=== PATIENT | female | born 1985 | race Caucasian/White ===

== ENCOUNTER 2018-04-17 09:50 | Inpatient (IN) | payer OTHER ==
[2018-04-17] MEDS ORDERED: Labetalol HCl 100 MG/20 ML VIAL ONE (11:08)
[2018-04-17] MEDS: Lactated Ringer's 1,000 ML IV SCH ×2 (11:10→20:09)
[2018-04-17] MEDS ORDERED: Magnesium Sulfate 20 GM/WATER 500 ML BAG IVPB SCH (11:15)
[2018-04-17] MEDS ORDERED: Calcium Gluc 4.6 MEQ/10 ML (100 MG/ML) SLOW IVP PRN (11:15)
[2018-04-17] MEDS ORDERED: Zolpidem Tartrate 5 MG TAB PO PRN (11:15)
[2018-04-17] MEDS: Labetalol HCl 100 MG/20 ML VIAL SLOW IVP PRN ×2 (11:30→15:39)
[2018-04-17] MEDS ORDERED: Penicillin G Potassium 5 MILL.UNITS in Sodium Chloride 0.9% 100 ML IVPB SCH (11:30)
[2018-04-17] MEDS ORDERED: NIFEdipine XL 30 MG TAB PO SCH (11:30)
[2018-04-17 11:34] LABS: Hemoglobin 10.4 g/dL (12.0-16.0); Mean Corpuscular HGB CONC 32.9 g/dL (32.0-36.0); Mean Corpuscular Hemoglobin 22.9 pg (27.0-31.0); Mean Corpuscular Volume 69.8 fL (78.0-98.0); Mean Platelet Volume 11.7 fL (7.4-10.4); Platelet Count 152 thou/uL (130-400); RBC Distribution Width 14.2 % (11.5-14.5); Red Blood Cell (RBC) Count 4.52 mill/uL (4.20-5.40); White Blood Cell (WBC) Count 8.9 thou/uL (4.8-10.8)
[2018-04-17 11:41] LABS: Amphetamine Not Detected (NotDetected); Barbiturates Screen Not Detected (NotDetected); Benzodiazepine Screen Not Detected (NotDetected); Cocaine Metabolite Screen Not Detected (NotDetected); Medtox Control Line Valid? VALID (VALID); Medtox Reader # READER 1; Methadone Not Detected (NotDetected); Methamphetamine Not Detected (NotDetected); Opiate Screen Not Detected (NotDetected); Oxycodone Screen Not Detected (NotDetected); Phencyclidine (PCP) Not Detected (NotDetected); THC/Cannabinoid Screen Not Detected (NotDetected); Tricyclic Screen Not Detected (NotDetected)
[2018-04-17 11:52] LABS: ALT (SGPT) 9 U/L (8-55); AST (SGOT) 14 U/L (5-34); Albumin 3.3 g/dL (3.5-5.0); Alkaline Phosphatase 81 U/L (40-150); Anion Gap 15 mmol/L (10-20); BUN (Urea Nitrogen) 10 mg/dL (7.0-18.7); Bilirubin, Total 0.2 mg/dL (0.2-1.2); Calc. Creatinine Clearance 0 mL/min (70-130); Calcium 8.7 mg/dL (7.8-10.44); Carbon Dioxide 16 mmol/L (22-29); Chloride 109 mmol/L (98-107); Estimated GFR-MDRD Greater than 90; Globulin 2.8 g/dL (2.4-3.5); Glucose 71 mg/dL (70-105); Potassium 4.4 mmol/L (3.5-5.1); Protein, Total 6.1 g/dL (6.0-8.3); Sodium 136 mmol/L (136-145)
[2018-04-17] MEDS: Magnesium Sulfate 20 gm/500 ml 20 GM/500 ML BAG IVPB SCH ×2 (12:00→20:09)
[2018-04-17 12:09] LABS: Syphilis Antibody Nonreactive (Nonreactive); Syphilis Antibody Index 0.03 S/CO (<1.00 Non-Reactive)
[2018-04-17 12:10] LABS: HBSAg Index 0.22 S/CO (0-0.99); HIV (1/2) Antibody/Antigen Non-Reactive (NonReactive); HIV 1/2 INDEX 0.07 S/CO (<1.00); Hep B Surf Ag Non-Reactive S/CO (NonReactive)
[2018-04-17] MEDS: Betamet Acet/Betamet Na Ph 30 MG/5 ML VIAL IM SCH (12:37)
--- NOTE | 2018-04-17 13:27 | ULT ---
OB ULTRASOUND: Date: 04-17-18 History: Preclampsia. Comparison: None available. FINDINGS: There is a single intrauterine gestation in cephalic presentation. Cardiac doppler demonstrates heart tones with a heart rate of 157 beats/minute. The placenta is located anteriorly without evidence of placenta previa. Amniotic fluid index was calculated at 10.5 cm which is within normal li mits. The lower uterine segment is obscured due to shadowing and not well evaluated on this exam. measurements: BPD 7.71 cm 31 weeks HC 27.92 cm 31 weeks 4 days AC 27.4 cm 31 weeks 3 days FL 5.65 cm 29 weeks 4 days Estimated gestational age by ultrasound is 30 weeks 3 days with an RHYS 06-23-18. Gestational age by t he last menstrual period is 31 weeks. The estimated weight by ultrasound is 1636 grams (3 lbs. 10 oz). This represents 30th percentil e for weight. anatomical structures were not evaluated on this exam. IMPRESSION: 1. Single intrauterine gestation in cephalic presentation with heart tones documented. 2. Estimated gestational age by ultrasound is 30 weeks 3 days and an RHYS on 06-23-18. 3. Estimated weight is 1636 grams (3 lbs. 10 oz). 4. Amniotic fluid index of 10.5 cm. 5. Obscuration of the cervix. POS: [facility]
[2018-04-17 15:10] VITALS: BMI 40.4
--- NOTE | 2018-04-17 15:36 | HP ---
DATE OF ENCOUNTER: 04/17/2018 PRIMARY OB: Dr. Narayan Navarrete. CHIEF COMPLAINT: Elevated blood pressures. HISTORY OF PRESENT ILLNESS: The patient is a 32-year-old female, who has recently changed obstetric care to Dr. Narayan Navarrete in the last week or two and is presenting to Labor and Delivery with elevate d blood pressures. She reports to the last several weeks, her blood pressures have been elevating in to the mild to severe range and was recently placed on labetalol 100 mg twice daily, which she has be en on for about a week. The patient reports that today her blood pressures were in the 160s in clini c and was sent to the hospital for evaluation. The patient reports that she does have intermittent h eadaches. She denies any shortness of breath or fever. She denies upper quadrant pain. In our disc ussion, the patient has likely history of chronic hypertension, which had been treated medically unti l the patient had successfully lost enough weight to come off medications 2-3 years ago. The patient reports since then she has not buying on any medications and has not been told that her blood pressu res have been a problem. Patient by report states that her pressures have been slightly elevated wit h this early on in the 140s. The timing of that is unclear at what trimester she began hav ing signs of elevated blood pressure. The patient denies fever, fall, chest pain, shortness of breat h, nausea, vomiting, diarrhea, constipation. She denies any new rashes. She denies vaginal bleeding . She reports a normal vaginal discharge with this . She denies hip problems or knee probl ems. She does report back pain associated with the . She denies urinary urgency or frequen cy. The patient also reports that she has gestational diabetes and has been treated conservatively o ff medications with diet control only. PAST MEDICAL HISTORY: History of chronic hypertension, currently off medications. PAST SURGICAL HISTORY: Negative. SOCIAL HISTORY: Denies drug, alcohol or tobacco use. ALLERGIES: No known drug allergies. MEDICATIONS: Labetalol 100 mg p.o. b.i.d., vitamins, OBSTETRIC HISTORY: This is her first . OBSTETRICAL LABORATORY DATA: Unavailable. REVIEW OF SYSTEMS: Per HPI. PHYSICAL EXAMINATION: VITAL SIGNS: Blood pressure on initial presentation was 166/98. Her peak blood pressure was 184/106 , heart rate 73, respiratory 18, and temperature 98.4. GENERAL: The patient appears to be in no acute distress. She is alert and oriented, cooperative, an d pleasant to interact with. HEENT: Normocephalic, atraumatic. LUNGS: Clear to auscultation bilaterally. HEART: Regular rate and rhythm. ABDOMEN: Soft. She has no right upper quadrant tenderness to palpation. Abdomen is gravid. EXTREMITIES: Nontender, nonedematous. DTRs are 1+. GENITOURINARY: Has been deferred. heart tracing performed for elevated blood pressures. Baseline is noted to be in the 120s with moderate long-term variability, positive 15 x 15 accelerations and no decelerations. Tocometer show s some irritability, but no consistent contractions. LABORATORY DATA: White count is 8.9, hemoglobin is 10.4, hematocrit 31.5, platelets 152,000. Sodium 136, potassium 4.4, chloride is 109, bicarbonate 16, BUN is 10, creatinine 0.72, glucose of 71, AST of 14, ALT of 9. Urine is negative for protein. Urine drug screen is negative. RPR is nonreactive, blood type is O positive with a negative antibody screen. A ultrasound was performed. Fetus is in vertex presentation. Placenta is anterior and estimat ed gestational age by ultrasound is 30 weeks and 3 days, who presented at 30th percentile for growth. ASSESSMENT AND PLAN: The patient is a 32-year-old female recently transferring OB care to Dr. Narayan Navarrete, who is presenting today with elevated blood pressures. By history, the patient does have chr onic hypertension, but has been managed by diet and exercise. Her lab work is completely negative in cluding her urine protein. Her blood pressures were easily brought under control with one dose of IV labetalol 20 mg with current blood pressures have been in the 150s for the last 3 hours. Fetus is r eassuring with a category 1 tracing. The patient likely is experiencing exacerbation of her chronic hypertension and not preeclampsia as the patient has no evidence of that at this time. Patient has b een started on Procardia 30 mg daily. She also has been started on magnesium for seizure prophylaxis at the onset of admission given the severity of her blood pressures. She has also been put on betam ethasone for lung maturity and placed on penicillin for GBS prophylaxis. Given the ease of cor rection of her blood pressures will likely discontinue her antibiotics shortly and consider discontin uing her magnesium later this afternoon with a transfer to the floor for blood pressure monitoring. Dr. Narayan Navarrete has been updated on the patient's status, he will be taking over management of care.
[2018-04-17 17:21] LABS: Amnisure Test No Membranes Rupture (No Rupture)
[2018-04-17 17:22] LABS: Amnisure Internal Control QC ACCEPTABLE (ACCEPTABLE)
[2018-04-17] MEDS: Acetaminophen 500 MG TAB PO PRN (20:08)
[2018-04-17] MEDS ORDERED: Insulin Regular 300 UNITS/3 ML VIAL SC PRN (22:24)
[2018-04-17] MEDS ORDERED: Dextrose 5% in Water 1,000 ML IV PRN (22:24)
[2018-04-17] MEDS ORDERED: Dextrose 50% Abboject 50 ML SYRINGE SLOW IVP PRN (22:24)
[2018-04-18] MEDS: Magnesium Sulfate 20 gm/500 ml 20 GM/500 ML BAG IVPB SCH (06:14)
[2018-04-18] MEDS: Acetaminophen 500 MG TAB PO PRN ×2 (08:35→15:20)
[2018-04-18] MEDS ORDERED: NIFEdipine XL 30 MG TAB PO SCH (09:00)
[2018-04-18 12:26] LABS: Collection Duration 24 hrs; Urine Total Volume 7400 mL (600-1600)
[2018-04-18] MEDS: Betamet Acet/Betamet Na Ph 30 MG/5 ML VIAL IM SCH (13:01)
[2018-04-18 15:44] LABS: Protein, Urine Less than 10 mg/dL (1-14)
--- NOTE | 2018-04-18 16:08 | PDOC.LDPN ---
Labor & Delivery Progress Note - Subjective Subjective: comfortable, no concerns - Objective General: NAD Uterine fundus: non tender FHT: category 1 - Assessment (1) Preeclampsia Code(s): O14.90 - UNSPECIFIED PRE-ECLAMPSIA, UNSPECIFIED TRIMESTER Current Visit: Yes Status: Acute -: Patient presents from clinic yesterday at approximately 31-32 weeks gestation ( official records not received yet) with severe range blood pressures, and 1+ protein. She complains of intermittent headaches, and her picture is very concerning for preeclamsia. When she presented to L&D, her pressures were even higher than clinic, and the patient underwent 24 hours of Magnesium Sulfate, BMZ course started, and a 24 hour urine protein was collected. Today, the patient feels better, blood pressures have improved on Procardia XL 30mg q day, and Metformin 500mg po BID ordered. NST q shift ordered. Repeat PIH labs ordered for the morning. 48 steroid window is being completed and will be up mid day tomorrow. A second 24 hour urine for protein is being collected, after the last collection was dilute with 7800 mL of volume, and too dilute for the lab to read confidently. We will reevaluate the patient tomorrow, and decide in continued in-patient care is warranted.
[2018-04-18] MEDS: Pen G 2.5 MILL.UNITS/50 ML BAG IVPB SCH (17:33)
[2018-04-18] MEDS: Lactated Ringer's 1,000 ML IV SCH (17:34)
[2018-04-18] MEDS: metFORMIN 500 MG TAB PO SCH (18:03)
[2018-04-18] MEDS ORDERED: Labetalol HCl 100 MG/20 ML VIAL SLOW IVP SCH (18:45)
[2018-04-18] MEDS: NIFEdipine XL 30 MG TAB PO SCH (21:23)
--- NOTE | 2018-04-19 01:01 | PDOC.LDPN ---
Labor & Delivery Progress Note - Subjective Subjective: comfortable, no concerns - Objective Vital signs reviewed and normal: yes General: NAD, resting - Assessment (1) Preeclampsia Code(s): O14.90 - UNSPECIFIED PRE-ECLAMPSIA, UNSPECIFIED TRIMESTER Current Visit: Yes Status: Acute -: Patient presents from clinic 04/17/18 at approximately 31-32 weeks gestation ( official records not received yet) with severe range blood pressures, and 1+ protein. She complained of intermittent headaches, and her picture was concerning for preeclamsia. Clinc SBP's were in the 160s on repeat readings. When she presented to L&D, her pressures were even higher than clinic, and the patient underwent 24 hours of Magnesium Sulfate, BMZ course was started, and a 24 hour urine protein was collected. Over the course of her admission , the patient states she feels better, blood pressures have improved on Procardia XL 30mg q 12h, and Metformin 500mg po BID started. HBA1C at 5.8 in (so GDM rather than Tyoe 2 seems likely.....although patient has a history of Metformin use several years back when her BMI was higher). Plan: 1. NST q shift 2. A second 24 hour urine for protein is being collected 3. PIH Labs ordered later this morning 4. Metformin 500mg po BID 5. Procardia 30XL q 12 hours
[2018-04-19 06:12] LABS: ALT (SGPT) 8 U/L (8-55); AST (SGOT) 11 U/L (5-34); Albumin 3.2 g/dL (3.5-5.0); Alkaline Phosphatase 76 U/L (40-150); Anion Gap 13 mmol/L (10-20); BUN (Urea Nitrogen) 14 mg/dL (7.0-18.7); Bilirubin, Total 0.2 mg/dL (0.2-1.2); Calc. Creatinine Clearance 165 mL/min (70-130); Calcium 8.2 mg/dL (7.8-10.44); Carbon Dioxide 21 mmol/L (22-29); Chloride 106 mmol/L (98-107); Estimated GFR-MDRD 86; Globulin 2.9 g/dL (2.4-3.5); Glucose 105 mg/dL (70-105); Potassium 4.1 mmol/L (3.5-5.1); Protein, Total 6.1 g/dL (6.0-8.3); Sodium 136 mmol/L (136-145); Uric Acid 6.5 mg/dL (2.6-6.0)
[2018-04-19 06:16] LABS: #Eosinphils 0.1 thou/uL (0.0-0.7); #Monocytes 0.6 thou/uL (0.11-0.59); #Neutrophils 9.1 thou/uL (1.40-6.50); %Basophils 0.1 % (0.0-1.0); %Lymphocytes 16.9 % (21.0-51.0); %Monocytes 5.1 % (0.0-10.0); %Neutrophils 76.9 % (42.0-75.0); Hemoglobin 9.2 g/dL (12.0-16.0); Mean Corpuscular HGB CONC 32.1 g/dL (32.0-36.0); Mean Corpuscular Hemoglobin 22.4 pg (27.0-31.0); Mean Corpuscular Volume 69.7 fL (78.0-98.0); Platelet Count 155 thou/uL (130-400); RBC Distribution Width 14.1 % (11.5-14.5); Red Blood Cell (RBC) Count 4.12 mill/uL (4.20-5.40); White Blood Cell (WBC) Count 11.8 thou/uL (4.8-10.8)
[2018-04-19] MEDS: metFORMIN 500 MG TAB PO SCH ×2 (08:17→17:01)
[2018-04-19] MEDS: NIFEdipine XL 30 MG TAB PO SCH ×2 (08:17→21:15)
[2018-04-19 16:27] LABS: Collection Duration 24 hrs; Urine Total Volume 1300 mL (600-1600)
[2018-04-19 16:47] LABS: Protein - 24 Hr 260 mg/24 hr (Less than 300); Protein, Urine 20 mg/dL (1-14)
[2018-04-20] MEDS: Acetaminophen 500 MG TAB PO PRN (08:20)
[2018-04-20] MEDS: metFORMIN 500 MG TAB PO SCH ×2 (08:20→17:24)
[2018-04-20] MEDS: NIFEdipine XL 30 MG TAB PO SCH ×2 (08:20→20:28)
--- NOTE | 2018-04-20 16:11 | PDOC.LDPN ---
Labor & Delivery Progress Note - Subjective Subjective: comfortable, other (The patient notes a 3/10 headache which seems persistent. ) - Objective Vital signs reviewed and normal: yes General: resting Uterine fundus: non tender - Assessment (1) Preeclampsia Code(s): O14.90 - UNSPECIFIED PRE-ECLAMPSIA, UNSPECIFIED TRIMESTER Current Visit: Yes Status: Acute Comment: 1. IUP at 31 3/7 weeks given 06/19/18 EDC (per previous practice in [place]) 2. History of CHTN and borderline DM 3. Morbid Obesity (BMI 40) 4. Acute worsening BPs worrisome for early preeclamsia development (SPB as high as 180s at presentaion) 5. Persistent 3/10 headache reported for 1-2 weeks 6. BMZ x2 given 7. Magnesium Sulfate x 24 hours given Plan 1. Patient now on Procardia XL 60mg total/24 hrs 2. Aldomet 250mg BID 3. Bloodpressures improved, but still SBPs 150s-160s persist 4. Persistant mild-moderate headache reported 5. Metformin 500mg BID started for GDM 6. Ultrasound with BPP ordered and pending 7. Repeat 24 hour urine ordered 8. PIH Labs re-ordered for morning
--- NOTE | 2018-04-20 19:50 | ULT ---
OB ULTRASOUND WITH BIOPHYSICAL PROFILE: 04/20/2018 HISTORY: Hypertension. Follow up for growth and evaluation of DESHAWN. COMPARISON: 04/17/2018 FINDINGS: Again noted is a single intrauterine gestation in a cephalic presentation. Cardiac Doppler demonstra louise heart tones with a heart rate of 133 beats per minute. The placenta is again located anteriorly without evidence of placenta previa. The amniotic fluid index measures 13.9 cm on the cu rrent study, with a previous calculation of 10.5 cm. The cervix is mostly obscured due to shadowing from the head. MEASUREMENTS: BIPARIETAL DIAMETER: 7.68 cm (30 weeks 6 days) HEAD CIRCUMFERENCE: 29.28 cm (32 weeks 2 days) ABDOMINAL CIRCUMFERENCE: 28.08 cm (32 weeks 1 day) FEMUR LENGTH: 6.28 cm (32 weeks 4 days) ESTIMATED GESTATIONAL AGE BY ULTRASOUND: 31 weeks 6 days RHYS: 06/16/2018 GESTATIONAL AGE BY LAST MENSTRUAL PERIOD: 31 weeks 3 days ESTIMATED WEIGHT BY ULTRASOUND: 1911 g (4 lbs 3 oz). This represents the 63rd percentile for weight. There has been interval growth when compared to the prior exam. This examination was not performed for evaluation of the anatomical structures, but the provide d images demonstrate no definite anomalies. BIOPHYSICAL PROFILE: A score of 2 was obtained, each, for movement, breathing, ton e, and amniotic fluid volume. IMPRESSION: 1. Single intrauterine gestation, in cephalic presentation, with heart tones documented. 2. Estimated gestational age, by ultrasound, is 31 weeks 6 days, with an estimated date of delivery of 06/16/2018. 3. Estimated weight 1911 g (4 lbs 3 oz). 4. Amniotic fluid index measuring 13.9 cm. 5. A total biophysical profile score of 8/8 is obtained. POS: [facility]
[2018-04-21 06:12] LABS: #Eosinphils 0.1 thou/uL (0.0-0.7); #Lymphocytes 2.4 thou/uL (1.20-3.40); #Monocytes 0.8 thou/uL (0.11-0.59); #Neutrophils 5.8 thou/uL (1.40-6.50); %Basophils 0.1 % (0.0-1.0); %Eosinophils 1.3 % (0.0-10.0); %Monocytes 8.5 % (0.0-10.0); %Neutrophils 64.1 % (42.0-75.0); Hemoglobin 9.8 g/dL (12.0-16.0); Mean Corpuscular HGB CONC 32.1 g/dL (32.0-36.0); Mean Corpuscular Hemoglobin 22.4 pg (27.0-31.0); Mean Corpuscular Volume 69.8 fL (78.0-98.0); Mean Platelet Volume 10.6 fL (7.4-10.4); Platelet Count 147 thou/uL (130-400); RBC Distribution Width 14.1 % (11.5-14.5); Red Blood Cell (RBC) Count 4.38 mill/uL (4.20-5.40); White Blood Cell (WBC) Count 9.1 thou/uL (4.8-10.8)
[2018-04-21 06:25] LABS: ALT (SGPT) 12 U/L (8-55); AST (SGOT) 15 U/L (5-34); Alkaline Phosphatase 80 U/L (40-150); Anion Gap 12 mmol/L (10-20); BUN (Urea Nitrogen) 15 mg/dL (7.0-18.7); Bilirubin, Total Less than 0.2 mg/dL (0.2-1.2); Calc. Creatinine Clearance 170 mL/min (70-130); Calcium 9.1 mg/dL (7.8-10.44); Carbon Dioxide 21 mmol/L (22-29); Chloride 107 mmol/L (98-107); Estimated GFR-MDRD 89; Globulin 2.7 g/dL (2.4-3.5); Glucose 89 mg/dL (70-105); Potassium 3.9 mmol/L (3.5-5.1); Protein, Total 5.7 g/dL (6.0-8.3); Sodium 136 mmol/L (136-145); Uric Acid 6.6 mg/dL (2.6-6.0)
[2018-04-21] MEDS: metFORMIN 500 MG TAB PO SCH ×2 (08:13→17:09)
[2018-04-21] MEDS: NIFEdipine XL 30 MG TAB PO SCH ×2 (08:14→20:52)
[2018-04-21] MEDS: Acetaminophen 500 MG TAB PO PRN (13:26)
[2018-04-21 17:28] LABS: Collection Duration 24 hrs; Urine Total Volume 1925 mL (600-1600)
[2018-04-21 18:17] LABS: Protein - 24 Hr 828 mg/24 hr (Less than 300); Protein, Urine 43 mg/dL (1-14)
--- NOTE | 2018-04-21 19:17 | PDOC.LDPN ---
Labor & Delivery Progress Note - Assessment (1) Preeclampsia Code(s): O14.90 - UNSPECIFIED PRE-ECLAMPSIA, UNSPECIFIED TRIMESTER Current Visit: Yes Status: Acute Comment: 1. IUP at 31 4/7 weeks given 06/19/18 EDC (per previous practice in [place]) 2. Severe Preeclampsia (newest 24 hour urine protein >800mg). 3. History of mild CHTN and borderline DM (HbA1C 5.8 in ). 4. Morbid Obesity (BMI 40) 5 Persistent 3/10 headache reported for 1-2 weeks, now 4/10 reported today 6. BMZ x2 given (04/17/18 - 04/18/18) 7. Magnesium Sulfate x 24 hours given (Acute Blood Pressure Control/Seizure prophylaxsys) Plan 1. Will transfer Patient back to L&D with new Sevre Preeclamsia diagnosis for closer monitoring. 2. Patient now on Procardia XL 30mg BID and Aldomet 500mg BID - but SBP is persistantly 160s today with little improvement depite titrating BP medications upwards mutiple times. 2. PIH Labs re-ordered for morning 3. According to ACOG guidlines, our goal would be to achieve 34 complted weeks prior to delivery if possible. However, the patients hospital course will dictate timing of delivery. Worsening markers of preeclampsia may require immidiate delivery. 4. Given early, nulliparous cervix, Section for delivery is likely.
[2018-04-22] MEDS: Acetaminophen 500 MG TAB PO PRN ×2 (02:42→09:02)
[2018-04-22] MEDS ORDERED: Butorphanol Tartrate 1 MG/ML VIAL ONE (06:05)
[2018-04-22] MEDS ORDERED: Butorphanol Tartrate 1 MG/ML VIAL SLOW IVP PRN (06:07)
[2018-04-22 06:12] LABS: #Basophils 0.1 thou/uL (0.0-0.2); #Eosinphils 0.2 thou/uL (0.0-0.7); #Lymphocytes 2.5 thou/uL (1.20-3.40); #Monocytes 0.6 thou/uL (0.11-0.59); #Neutrophils 5.3 thou/uL (1.40-6.50); %Eosinophils 1.9 % (0.0-10.0); %Lymphocytes 28.8 % (21.0-51.0); %Monocytes 7.4 % (0.0-10.0); Hemoglobin 10.2 g/dL (12.0-16.0); Mean Corpuscular HGB CONC 32.3 g/dL (32.0-36.0); Mean Corpuscular Hemoglobin 22.4 pg (27.0-31.0); Mean Corpuscular Volume 69.4 fL (78.0-98.0); Mean Platelet Volume 10.5 fL (7.4-10.4); Platelet Count 124 thou/uL (130-400); RBC Distribution Width 14.3 % (11.5-14.5); Red Blood Cell (RBC) Count 4.57 mill/uL (4.20-5.40); White Blood Cell (WBC) Count 8.7 thou/uL (4.8-10.8)
[2018-04-22 06:26] LABS: ALT (SGPT) 12 U/L (8-55); AST (SGOT) 15 U/L (5-34); Alkaline Phosphatase 77 U/L (40-150); Anion Gap 11 mmol/L (10-20); BUN (Urea Nitrogen) 12 mg/dL (7.0-18.7); Bilirubin, Total 0.2 mg/dL (0.2-1.2); Calc. Creatinine Clearance 159 mL/min (70-130); Calcium 8.2 mg/dL (7.8-10.44); Carbon Dioxide 21 mmol/L (22-29); Chloride 108 mmol/L (98-107); Estimated GFR-MDRD 82; Globulin 2.8 g/dL (2.4-3.5); Glucose 74 mg/dL (70-105); Protein, Total 5.8 g/dL (6.0-8.3); Sodium 136 mmol/L (136-145); Uric Acid 7.1 mg/dL (2.6-6.0)
[2018-04-22] MEDS: Labetalol HCl 100 MG/20 ML VIAL SLOW IVP PRN (08:45)
[2018-04-22] MEDS: NIFEdipine XL 30 MG TAB PO SCH (08:56)
[2018-04-22] MEDS: metFORMIN 500 MG TAB PO SCH ×2 (08:56→16:04)
[2018-04-22] MEDS: Magnesium Sulfate 20 gm/500 ml 20 GM/500 ML BAG IVPB SCH ×2 (09:36→18:27)
[2018-04-22] MEDS ORDERED: Lactated Ringer's 500 ML IV PRN (11:03)
[2018-04-22] MEDS ORDERED: Ketorolac Tromethamine 30 MG/ML VIAL ONE ×2 (11:08→13:10)
[2018-04-22] MEDS ORDERED: Ondansetron HCl/PF 4 MG/2 ML Vial ONE ×2 (11:08→13:10)
[2018-04-22] MEDS ORDERED: Dexamethasone 20 MG/5 ML VIAL ONE (11:08)
[2018-04-22] MEDS ORDERED: Lactated Ringer's 1,000 ML IV SCH (11:15)
[2018-04-22] MEDS ORDERED: Bicitra 30 ML UDCUP ONE (12:04)
[2018-04-22] MEDS ORDERED: CEFAZOLIN/Water 2 GM/20 ML SYRINGE ONE (12:04)
--- NOTE | 2018-04-22 12:36 | PDOC.LDPN ---
Labor & Delivery Progress Note - Assessment (1) Preeclampsia Code(s): O14.90 - UNSPECIFIED PRE-ECLAMPSIA, UNSPECIFIED TRIMESTER Current Visit: Yes Status: Acute Comment: 1. IUP at 31 5/7 weeks given 06/19/18 EDC (per previous practice in [place]) 2. Severe Preeclampsia (newest 24 hour urine protein >800mg). 3. History of mild CHTN and borderline DM (HbA1C 5.8 in ). 4. Morbid Obesity (BMI 40) 5 Persistent 3/10 headache reported for 1-2 weeks, but acutely worse today at 6/ 10 or more. 6. BMZ x2 given (04/17/18 - 04/18/18) 7. Magnesium Sulfate x 24 hours given (Acute Blood Pressure Control/Seizure prophylaxsys), now restated at 4g load/2g per hour. Plan 1. Despite intense efforts to control rising blood pressures and worsening headaches, the patient's overal severe preeclampsia condition is deteriorating, Uric Acid and LDH are trending upwards, BPs are trending upwards despite mutiple efforts to to increase anti-hypertensive medication to stabalize the patient. We will thus prceede with immidiate delivery, as she is a poor induction candiate being a G1, only having a 31 weeks cervix, morbidly obese, and medically difficult to stabalize.
[2018-04-22] MEDS ORDERED: CEFAZOLIN/Water 2 GM/20 ML SYRINGE SLOW IVP SCH (12:45)
[2018-04-22] MEDS ORDERED: Morphine PF 1 MG/ML SYR ONE (12:49)
[2018-04-22] MEDS ORDERED: Lidocaine 1% PF 5 ML VIAL ONE (12:50)
[2018-04-22] MEDS ORDERED: Bupivacaine 0.75% W/DEXTROSE 8.25% 2 ML AMP ONE (12:50)
[2018-04-22] MEDS ORDERED: Dexamethasone 4 mg/ml Vial ONE (13:10)
[2018-04-22] MEDS ORDERED: Oxytocin 10 UNITS/ML VIAL ONE ×3 (13:10→13:34)
[2018-04-22] MEDS ORDERED: Naloxone HCl 0.4 mg/ml Vial IVP PRN ×2 (13:24)
[2018-04-22] MEDS ORDERED: Eucerin (Mineral Oil/Petrolatum,White) 30 gm Jar TOP PRN (13:24)
[2018-04-22] MEDS ORDERED: HYDROmorphone 2 MG/ML VIAL SLOW IVP PRN (13:24)
[2018-04-22] MEDS ORDERED: diphenhydrAMINE 50 MG/ML VIAL IVP PRN (13:24)
[2018-04-22] MEDS ORDERED: Ketorolac Tromethamine 30 MG/ML VIAL IVP PRN (13:24)
[2018-04-22] MEDS ORDERED: Ondansetron HCl/PF 4 MG/2 ML Vial IVP PRN ×3 (13:24→17:25)
[2018-04-22] MEDS ORDERED: Meperidine HCl/PF 25 MG/ML VIAL SLOW IVP PRN (13:24)
[2018-04-22] MEDS ORDERED: Naloxone HCl 0.4 mg/ml Vial IV PRN (13:24)
[2018-04-22] MEDS ORDERED: Communication Order-Pharmacy FS SCH (13:30)
[2018-04-22] MEDS ORDERED: Ketorolac Tromethamine 30 MG/ML VIAL IVP SCH (13:30)
[2018-04-22] MEDS ORDERED: Measles/Mumps/Rubella 10 MCG/0.5 ML VIAL SC ONE (17:25)
[2018-04-22] MEDS ORDERED: Bisacodyl 10 MG SUPP PR PRN (17:25)
[2018-04-22] MEDS ORDERED: Lanolin Ointment 7 GM TUBE TOP PRN (17:25)
[2018-04-22] MEDS ORDERED: Varicella virus, LIVE 0.5 ML VIAL SC ONE (17:25)
[2018-04-22] MEDS ORDERED: Promethazine HCl 25 MG/ML VIAL IM PRN (17:25)
[2018-04-22] MEDS ORDERED: diphenhydrAMINE 25 MG CAP PO PRN (17:25)
[2018-04-22] MEDS ORDERED: Adacel (T-DAP) 0.5 ML VIAL IM ONE (17:25)
[2018-04-22] MEDS: NS / Oxytocin 40 units/1000ml 1,000 ML IV SCH (20:05)
[2018-04-23] MEDS: Docusate Calcium (SURFAK) 240 MG CAP PO SCH ×3 (00:20→21:40)
[2018-04-23] MEDS ORDERED: HYDROcodone/Acetaminophen 5/325 mg Tablet PO PRN ×2 (01:30→09:30)
[2018-04-23] MEDS: Magnesium Sulfate 20 gm/500 ml 20 GM/500 ML BAG IVPB SCH (04:13)
[2018-04-23 06:29] LABS: Hemoglobin 9.2 g/dL (12.0-16.0); Mean Corpuscular HGB CONC 32.6 g/dL (32.0-36.0); Mean Corpuscular Hemoglobin 22.5 pg (27.0-31.0); Mean Corpuscular Volume 69.1 fL (78.0-98.0); Mean Platelet Volume 11.3 fL (7.4-10.4); Platelet Count 121 thou/uL (130-400); RBC Distribution Width 14.3 % (11.5-14.5); White Blood Cell (WBC) Count 14.2 thou/uL (4.8-10.8)
[2018-04-23] MEDS: Labetalol HCl 100 MG/20 ML VIAL SLOW IVP PRN (09:50)
[2018-04-23] MEDS: Prenatal Vitamin 1 TAB PO SCH (10:07)
[2018-04-23] MEDS: Ferrous Sulfate 325 MG TAB PO SCH ×2 (10:17→19:18)
[2018-04-23] MEDS: NS / Oxytocin 40 units/1000ml 1,000 ML IV SCH (10:25)
[2018-04-23] MEDS ORDERED: NIFEdipine XL 30 MG TAB PO SCH (13:45)
[2018-04-23] MEDS: Ibuprofen 800 MG TAB PO SCH ×2 (15:34→21:39)
[2018-04-23] MEDS: metFORMIN 500 MG TAB PO SCH (15:46)
[2018-04-24] MEDS: Ibuprofen 800 MG TAB PO SCH ×3 (06:38→21:24)
[2018-04-24] MEDS: Ferrous Sulfate 325 MG TAB PO SCH ×2 (09:35→17:53)
[2018-04-24] MEDS: Docusate Calcium (SURFAK) 240 MG CAP PO SCH ×2 (09:35→21:24)
[2018-04-24] MEDS: Prenatal Vitamin 1 TAB PO SCH (09:35)
--- NOTE | 2018-04-24 19:49 | PDOC.PP ---
Post Progress Note Post Day #: 1 PO intake tolerated: yes Ambulation: yes Vital Signs (12 hours) Temp Pulse Resp BP 04/24/18 17:21 98.7 F 91 20 146/79 H 04/24/18 16:00 98.7 F 91 20 04/24/18 12:00 98.3 F 89 20 04/24/18 11:50 98.3 F 89 20 141/90 H 04/24/18 08:00 98.4 F 88 20 Weight Weight 221 lb - Physical Examination General: NAD Cardiovascular: no m/r/g Respiratory: clear to auscultation bilaterally Abdominal: no distention, appropriately TTP Extremities: negative homans (B) Skin: CS incision dry & intact, no rash Neurological: no gross focal deficits Psychiatric: A&Ox3, normal affect Result Diagrams: 04/23/18 06:16 04/22/18 06:01 Additional Labs: Post Labs Blood Type O POSITIVE 04/22/18 12:15 Hep Bs Antigen Non-Reactive S/CO (NonReactive) 04/17/18 11:16 (1) Preeclampsia Code(s): O14.90 - UNSPECIFIED PRE-ECLAMPSIA, UNSPECIFIED TRIMESTER Status: Acute Comment: PPD #1, doing very well after emergency CS. Patient is off Magnesium Sulfate, now on Procardia 30XL BID.
--- NOTE | 2018-04-24 19:50 | PDOC.PP ---
Post Progress Note PO intake tolerated: yes Flatus: yes Ambulation: yes Vital Signs (12 hours) Temp Pulse Resp BP 04/24/18 17:21 98.7 F 91 20 146/79 H 04/24/18 16:00 98.7 F 91 20 04/24/18 12:00 98.3 F 89 20 04/24/18 11:50 98.3 F 89 20 141/90 H 04/24/18 08:00 98.4 F 88 20 Weight Weight 221 lb - Physical Examination General: NAD Cardiovascular: no m/r/g, RRR Respiratory: clear to auscultation bilaterally, non-labored breathing Abdominal: + bowel sounds, no distention, appropriately TTP Extremities: negative homans (B) Skin: CS incision dry & intact, no rash Neurological: no gross focal deficits Psychiatric: A&Ox3, normal affect (PT doing well on POD #2. DC tomorrow anticipated to home.) Result Diagrams: 04/23/18 06:16 04/22/18 06:01 Additional Labs: Post Labs Blood Type O POSITIVE 04/22/18 12:15 Hep Bs Antigen Non-Reactive S/CO (NonReactive) 04/17/18 11:16 (1) Preeclampsia Code(s): O14.90 - UNSPECIFIED PRE-ECLAMPSIA, UNSPECIFIED TRIMESTER Status: Acute Comment: PPD #1, doing very well after emergency CS. Patient is off Magnesium Sulfate, now on Procardia 30XL BID.
[2018-04-24] MEDS ORDERED: NIFEdipine XL 30 MG TAB PO SCH (22:15)
[2018-04-25] MEDS: Ibuprofen 800 MG TAB PO SCH ×3 (05:37→21:26)
[2018-04-25] MEDS: Docusate Calcium (SURFAK) 240 MG CAP PO SCH ×2 (08:59→21:26)
[2018-04-25] MEDS: Prenatal Vitamin 1 TAB PO SCH (08:59)
[2018-04-25] MEDS: Ferrous Sulfate 325 MG TAB PO SCH ×2 (08:59→17:47)
[2018-04-25] MEDS ORDERED: NIFEdipine XL 30 MG TAB PO SCH (09:00)
--- NOTE | 2018-04-25 19:06 | OP ---
DATE OF PROCEDURE: 04/22/2018 PREOPERATIVE DIAGNOSIS: Intrauterine at 31 weeks and 5 days with severe preeclampsia. POSTOPERATIVE DIAGNOSIS: Intrauterine at 31 weeks and 5 days with severe preeclampsia. PROCEDURES: 1. Primary low transverse section. 2. Myomectomy. FINDINGS: Viable male weighing 1840 grams or 4 pounds 1 ounce with a nuchal cord around the n yolanda x1. Apgars 4 at 1 minute and 8 at 5 minutes. COMPLICATIONS: None. INDICATIONS FOR PROCEDURE: The patient presented to the [facility] Emergency Room, sent over from clinic after experiencing severe range blood pressures as well as overall feelin g poorly. She was taken to Labor and Delivery where she was initially seen by Dr. Vijay sanchez d admitted for elevated blood pressures. She was started on magnesium sulfate almost immediately aft er severe range blood pressures were encountered. The patient received betamethasone steroid course q.24 hours for 2 doses and was then admitted to the antepartum service where she remained. By midday on 04/22/2018, the patient began having worsening clinical picture where her blood pressures were de teriorating despite our efforts all night to help stabilize her blood pressures. Also her headache t hat had been present had worsened considerably in intensity and pain. At that point, it was determin ed that the patient's preeclampsia was acutely and quickly getting worse. The patient was counseled on her options and consented for section. She then underwent primary section. DETAILS OF THE PROCEDURE: The patient was consented and taken back to the operating room where spina l anesthesia was found to be adequate. She was then prepped and draped in the normal sterile fashion . A time out was performed by the entire operative team. The incision was then marked with a marking pen tested using sharp pickups. An incision was then made with a scalpel. The incision was carried through the adipose tissue down to the underlying rectus fascia using both sharp dissection as well as cautery. Once the fascia was identified, it was incised in the midline and then the fascial incis ion was carried through in both lateral directions using sharp as well as cautery dissection techniqu es. Next, the superior aspect of the rectus fascia was grasped with 2 Yuki clamps which was tented up and the rectus muscles were dissected off using blunt dissection as well as cautery dissection. Similarly, the inferior aspect of the fascial incision was grasped with 2 Yuki clamps, tented up an d the rectus muscles were dissected off bluntly as well as sharply. Next, the rectus muscles were se parated in the midline and the peritoneum identified. The peritoneum was then carefully grasped with two hemostats and entered sharply. The peritoneal incision was extended superiorly and inferiorly a nd bladder blade was placed in the lower abdomen. At this point, the uterus was identified and the b ladder flap was then developed using pickups with teeth as well as Metzenbaum scissors in both latera l directions. The bladder flap was then dissected downwards using the contact lens lathe operator's finger as well as M etzenbaum scissors. The bladder blade was replaced. The lower uterine segment was then identified a nd entered sharply using a clean scalpel. The uterine incision was then dissected downwards until th in layer of muscle remained and this was entered bluntly using a hemostat to avoid any injury to the baby. The uterine incision was then stretched using two fingers in both lateral directions. An amniotomy was performed artificially using a hemostat and the baby was delivered using fundal pres sure in a gentle fashion. Once out, the baby's mouth and nose were bulb suctioned, cord clamped and cut, and the baby was handed to waiting attendants. Next, the uterus was exteriorized, cleared of al l clots and debris and the uterine incision was repaired with #1 Monocryl in a running locking fashio n. A second suture of the same type was used to obtain complete hemostasis at the uterine incision. The bladder flap was reapproximated using 3-0 Monocryl. Next, patient's left and right adnexa were inspected and appeared to be within normal limits. The posterior cul-de-sac was blotted dry and hemo stasis assured. One more look at the uterine incision demonstrated hemostasis. Next, the uterus was replaced back within the abdomen. The peritoneum was reapproximated using 2-0 Monocryl without diff iculty. The rectus muscles were then allowed to come back together and 0 chromic was used to aid in reapproximation of the muscle as necessary. The rectus fascia was then reapproximated in a running f ashion using 0 Vicryl suture. The adipose tissue was then examined and appeared to be well approxima josie without any obvious separations. Finally, the skin was reapproximated with 3-0 Monocryl on a Jonatan th needle without difficulty and Dermabond adhesive was applied to the skin. Once the glue was dry, the drapes were removed and the patient was transferred to an ambulatory bed where she was taken to ecovery awake and in stable condition. Sponge, lap, and needle counts were correct x3.
[2018-04-25] MEDS: NIFEdipine XL 60 MG TAB PO SCH (21:27)
[2018-04-26] MEDS: Ibuprofen 800 MG TAB PO SCH ×2 (05:47→14:01)
--- NOTE | 2018-04-26 07:52 | PRG ---
DATE OF SERVICE: 04/26/2018. SUBJECTIVE: The patient is a 32-year-old female who is postop day #4 for status post a primary lower -transverse section for severe preeclampsia. Today, she reports that she is tolerating p.o. , having decreased lochia, good pain control and ambulating. PHYSICAL EXAMINATION: VITAL SIGNS: This morning, blood pressure 148/74, pulse of 84. She had a blood pressure max of 162/ 89 last night and was instituted on Procardia 60 mg daily. GENERAL: The patient appears to be in no acute distress. She is alert and oriented, cooperative and pleasant to interact with. ABDOMEN: Fundus is firm. Incision is clean, dry, and intact. EXTREMITIES: Nontender with minimal edema and symmetrical. ASSESSMENT AND PLAN: The patient is a 32-year-old female who is postop day #4 status post a primary at 31 weeks for severe preeclampsia. The patient continues to spike infrequent severe rang e of blood pressures and was instituted last night on Procardia-XL 60 mg. We will continue to observ e the patient through the day and if is able to maintain mild range of blood pressures better into th e evening, can be discharged this evening. Dr. Navarrete already has a discharge order in place, which we will be holding for the time being.
[2018-04-26] MEDS: Ferrous Sulfate 325 MG TAB PO SCH ×2 (08:05→16:36)
[2018-04-26] MEDS: NIFEdipine XL 60 MG TAB PO SCH (08:06)
[2018-04-26] MEDS: Docusate Calcium (SURFAK) 240 MG CAP PO SCH (08:06)
[2018-04-26] MEDS: Prenatal Vitamin 1 TAB PO SCH (08:08)
[2018-04-26 17:12] VITALS: BP 140/93; TEMP 98.3
== END 2018-04-26 16:55 | disposition home or self-care (01) | DRG 765 ==
LOC: L&D/OP 09:50 → L&D 17:22 → 3SW 04-18 16:57 → L&D 04-21 20:13 → 3SW 04-23 15:08
PROVIDERS: ADMIT Obstetrics & Gynecology; ATTEND Obstetrics & Gynecology
PROC: 10D00Z1 Extraction of Products of Conception, Low, Open Approach (ICD-10-PCS; principal; 2018-04-22)
PROC: 0UB90ZZ Excision of Uterus, Open Approach (ICD-10-PCS; 2018-04-22)
DX: O11.4 Pre-existing hypertension with pre-eclampsia, complicating childbirth (principal); Z68.41 Body mass index [BMI] 40.0-44.9, adult; O24.420 Gestational diabetes mellitus in childbirth, diet controlled; O69.81X0 Labor and delivery complicated by cord around neck, without compression, not applicable or unspecified; O99.214 Obesity complicating childbirth; E66.9 Obesity, unspecified; Z3A.31 31 weeks gestation of pregnancy; Z23 Encounter for immunization; Z37.0 Single live birth
CPT/HCPCS: 36415; 36416; 51702; 59025; 76805; 76816; 76819; 80053; 80306; 81003; 83615; 84112; 84156; 84550; 85025; 85027; 86780; 86850; 86900; 86901; 87081; 87340; 87389; 88305; 88307; 90715; 99285; A4216; J0595; J0702; J1100; J1815; J1885; J2001; J2274; J2405; J2590; J3475; J3490